=== PATIENT | female | born 1960 | race Caucasian/White ===

== ENCOUNTER 2018-07-06 05:20 | Day surgery (SDC) | payer OTHER ==
[~2018-07-06] VITALS: Ht 154.9 cm; Wt 63.2 kg
[~2018-07-06 05:20] MED LIST: SODIUM CHLORIDE 0.9% 1,000 ML IV ONE
[2018-07-06] MEDS ORDERED: ALBUTEROL SULFATE 2.5 MG/0.5 ML NEB SOLUTION NEB ONE (05:21)
[2018-07-06] MEDS ORDERED: LIDOCAINE 2% 30 ML JELLY TP ONE (05:21)
[2018-07-06] MEDS ORDERED: LIDOCAINE 4% 50 ML SOLUTION TP ONE (05:21)
[2018-07-06] MEDS ORDERED: BENZOCAINE 20% 50 MCG/SPRAY 57 GM TP ONE (05:21)
[2018-07-06] MEDS ORDERED: SODIUM CHLORIDE 0.9% 1,000 ML IV ONE (06:30)
[2018-07-06] MEDS ORDERED: NAPR-1193 PO (07:00)
[2018-07-06] MEDS ORDERED: PROP20TA18 PO (07:00)
[2018-07-06] MEDS ORDERED: MOME13HF IH (07:00)
[2018-07-06] MEDS ORDERED: MIDAZOLAM HCL 2 MG/2 ML VIAL ONE (07:41)
[2018-07-06] MEDS ORDERED: FentaNYL CITRATE-PF 100 MCG/2 ML VIAL ONE (07:41)
[2018-07-06] MEDS ORDERED: MethylPREDNISolone SOD SUCC 125 MG/2 ML VIAL IVP ONE (08:15)
[2018-07-06] MEDS ORDERED: MethylPREDNISolone SOD SUCC 125 MG/2 ML VIAL ONE (08:21)
[2018-07-06] MEDS ORDERED: OXYGEN THERAPY IH SCH (20:00)
== END 2018-07-06 09:35 | disposition home or self-care (01) ==
LOC: SURGERY 05:20
PROVIDERS: ATTEND Internal Medicine Critical Care Medicine
DX: J38.4 Edema of larynx (principal); B37.0 Candidal stomatitis; J98.09 Other diseases of bronchus, not elsewhere classified; J45.998 Other asthma; I10 Essential (primary) hypertension; Z79.891 Long term (current) use of opiate analgesic; Z90.710 Acquired absence of both cervix and uterus; Z90.49 Acquired absence of other specified parts of digestive tract; Z79.899 Other long term (current) drug therapy
CPT/HCPCS: 31623; 31624; 71045; 87015; 87070; 87205; 87206; 87220; 88108; 88312; J2250; J2930; J3010; J7030

== ENCOUNTER 2021-05-02 06:00 | Day surgery (SDC) | payer OTHER ==
[~2021-05-02] VITALS: Ht 154.9 cm; Wt 61.4 kg
[~2021-05-02 06:00] MED LIST changes: +MOME13HF IH; +NAPR-1193 PO; +PROP20TA18 PO; -SODIUM CHLORIDE 0.9% 1,000 ML IV ONE; +SODIUM CHLORIDE 0.9% 1,000 ML ONE
[2021-05-02] MEDS ORDERED: ALBUTEROL SULFATE 2.5 MG/0.5 ML NEB SOLUTION NEB ONE (06:01)
[2021-05-02] MEDS ORDERED: BENZOCAINE 20% 50 MCG/SPRAY 57 GM TP ONE (06:01)
[2021-05-02] MEDS ORDERED: LIDOCAINE 2% 5 ML JELLY TP ONE (06:01)
[2021-05-02] MEDS ORDERED: LIDOCAINE 2% 30 ML JELLY TP ONE (06:01)
[2021-05-02 06:59] LABS: COVID AG,FIA SOURCE NASOPHARYNGEAL
[2021-05-02] MEDS ORDERED: SODIUM CHLORIDE 0.9% 1,000 ML IV ONE (07:00)
[2021-05-02] MEDS ORDERED: CHOL500013 PO (07:21)
[2021-05-02] MEDS ORDERED: FentaNYL CITRATE PF 100 MCG/2 ML VIAL ONE (07:27)
[2021-05-02] MEDS ORDERED: MIDAZOLAM HCL 5 MG/ML VIAL ONE (07:28)
[2021-05-02] MEDS ORDERED: MethylPREDNISolone SOD SUCC 125 MG/2 ML VIAL IVP ONE (09:00)
[2021-05-02] MEDS ORDERED: MethylPREDNISolone SOD SUCC 125 MG/2 ML VIAL ONE (09:24)
[2021-05-02] MEDS ORDERED: OXYGEN THERAPY IH SCH (20:00)
== END 2021-05-02 10:40 | disposition home or self-care (01) ==
LOC: SURGERY 06:00
PROVIDERS: ATTEND Internal Medicine Critical Care Medicine
DX: J38.4 Edema of larynx (principal); B37.0 Candidal stomatitis; I10 Essential (primary) hypertension; I25.2 Old myocardial infarction; J45.909 Unspecified asthma, uncomplicated; Z98.890 Other specified postprocedural states; Z90.710 Acquired absence of both cervix and uterus; Z79.899 Other long term (current) drug therapy
CPT/HCPCS: 31623; 31624; 71045; 87015; 87070; 87101; 87206; 87220; 87426; 88184; 88185; C9803; J2250; J2930; J3010; J7030; 87205; 88108; 88312; J7613